=== PATIENT | female | born 1945 | race Caucasian/White ===

== ENCOUNTER 2018-07-06 09:27 | Emergency (ER) | payer MEDICARE ==
[~2018-07-06] VITALS: Ht 165.1 cm; Wt 61.2 kg
--- OUTSIDE RECORDS SUMMARY | 2018-07-06 09:29 | XMS REPORT | Summary of Care ---
Author Author [facility] [place] Organization [facility] [place] Address Unknown Phone Unavailable Encounter HQ Encntr_madeline(FIN) [id number] Date(s): 07/04/16 - 07/04/16 [facility] [place] [address] [place] [address] [phone] Discharge Disposition: Home or Self Care Attending Physician: Rojas Urias MD Vital Signs No data available for this section Problem List No data available for this section Allergies, Adverse Reactions, Alerts Substance Reaction Severity Status tetracyclines Active Medications No data available for this section Results No data available for this section Immunizations Given and Recorded Vaccine Date Status Refusal Reason tetanus-diphtheria toxoids 09/14/11 Given Procedures No data available for this section Social History No data available for this section Assessment and Plan No data available for this section
--- OUTSIDE RECORDS SUMMARY | 2018-07-06 09:29 | XMS REPORT | CCD ---
Author Author Auto Generated Organization [facility] Address Unknown Phone Unavailable Care Team Providers Care Director Peoples[employer] Name Role Phone Parag Ashley CP Allergies, Adverse Reactions, Alerts Substance Reaction Status tetracyclines Active Medications Medication Instructions Start Date End Date Status Vicodin 5/500 oral 1 tab, PO, Q4H, PRN, 14 tab, for 09/14/2011 Ordered tablet pain, Substitution Allowed, Maintenance, TAB Augmentin 400 mg/5 5 ml, PO, Q12H, 100 mL, 09/14/2011 09/24/2011 Ordered mL oral liquid Substitution Allowed, Maintenance, PDR/REC tetanus-diphtheria 0.5 ml, Route: IM, Drug Form: INJ, 09/14/2011 09/14/2011 Completed toxoids adult ONCE, STAT, Start date: 09/14/11 intramuscular 23:38:00, Stop date: 09/14/11 suspension 23:38:00 Immunizations Vaccine Date Status tetanus-diphtheria toxoids 09/14/2011 Auth (Verified) Vital Signs Most recent to oldest [Reference Range]: 1 2 Height 165.10 cm (09/14/2011 20:42:00) Temperature Oral [96.4-99.1 DegF] 98.4 DegF (09/14/2011 23:52:00) Systolic Blood Pressure [90-140 mmHg] 172 mmHg *HI* (09/14/2011 23:52:00) 140 mmHg (09/14/2011 20:42:00) Diastolic Blood Pressure [60-90 mmHg] 65 mmHg (09/14/2011 23:52:00) 57 mmHg *LOW* (09/14/2011 20:42:00) Respiratory Rate [14-20 BRMIN] 20 BRMIN (09/14/2011 23:52:00) 18 BRMIN (09/14/2011 20:42:00) Peripheral Pulse Rate [60-100 bpm] 74 bpm (09/14/2011 23:52:00) 89 bpm (09/14/2011 20:42:00) Weight 67.273 kg (09/14/2011 20:42:00)
--- OUTSIDE RECORDS SUMMARY | 2018-07-06 09:29 | XMS REPORT | Continuity of Care Document ---
Author Author Francisco pineda [facility] Interface Address Unknown Phone Unavailable Problems Problem Status Onset Date Classification Date Reported Comments Source M81.0 - AGE-RELATED OSTEOPOROSIS W/O C Active 06/28/2016 MARCELO Francis FALL Active 09/14/2011 [facility] Medications Medication Details Route Status Patient Instructions Ordering Provider Order Date Source tetanus-diphtheria toxoids adult intramuscular suspension 0.5 ml, Route: IM, Drug Form: INJ, ONCE, STAT, Start date: 09/14/11 23:38:00, Stop date: 09/14/11 23:38:00LOT#: [id number]: (Td=tetanus toxoid-diphtheria toxoid 5-2 unit/0.5 ml adult tubex INJ) [place] [facility]500 oral tablet 1 tab, PO, Q4H, PRN, 14 tab, for pain, Substitution Allowed, Maintenance, TAB PO Active [facility] [place]/15/2011 [facility] Augmentin 400 mg/5 mL oral liquid 5 ml, PO, Q12H, 100 mL, Substitution Allowed, Maintenance, PDR/REC PO Active [facility] [place]/15/2011 [facility] Allergies, Adverse Reactions, Alerts Substance Category Reaction Severity Reaction type Status Date Reported Comments Source tetracyclines Assertion Drug allergy Active MARCELO Francis Immunizations Immunization Date Given Site Status Last Updated Comments Source tetanus-diphtheria toxoids 09/15/[address] [facility] 09/15/2011 Left deltoid completed [facility] MARCELO Francis Results Order Name Results Value Reference Range Date Interpretation Comments Source Bone Density DXA Dual Energy MA Bone Density DXA Dual Energy MA - Bone Density DXA Dual Energy MA BONE DENSITY EVALUATION: 07/04/2016 CLINICAL DATA: Post menopausal. RISK FACTORS: race. FINDINGS: Bone density evaluation was performed 07/04/2016 on the AP L1-L4 region of spine using a Hologic unit. The BMD average for the exam is 0.977 g/cm2. The T-score is -0.60 and the Z-score is 1.50. This matches the World Health Organization's criteria for normal bone density and places the patient within normal limits of fracture risk. An additional bone density evaluation was performed 07/04/2016 on the right femur neck using a Hologic unit. The BMD average for the exam is 0.808 g/cm2. The T-score is -1.10 and the Z-score is 0.50. This matches the World Health Organization's criteria for osteopenia and places the patient at a medium risk for fracture. An additional bone density evaluation was performed 07/04/2016 on the right hip using a Hologic unit. The BMD average for the exam is 0.815 g/cm2. The T-score is -1.00 and the Z-score is 0.50. This matches the World Health Organization's criteria for normal bone density and places the patient within normal limits of fracture risk. An additional bone density evaluation was performed 07/04/2016 on the left femur neck using a Hologic unit. The BMD average for the exam is 0.685 g/cm2. The T- score is -1.50 and the Z-score is 0.40. This matches the World Health Organization's criteria for osteopenia and places the patient at a medium risk for fracture. An additional bone density evaluation was performed 07/04/2016 on the left hip using a Hologic unit. The BMD average for the exam is 0.711 g/cm2. The T-score is -1.20 and the Z-score is 0.60. This matches the World Health Organization's criteria for osteopenia and places the patient at a medium risk for fracture. IMPRESSION: OSTEOPENIA Patient is at medium risk for fracture. Professional services are provided by the [facility]. This exam was dictated and interpreted by [id number] for MAGDALENA Mtz 15. Paawn Roper M.D., cm/liana:07/04/2016 11:47:04 Flight Line Service Attendant: Alanis FONSECA(Marv)(M), [facility] 07/04/2016 - - Read by: Lance Roper III, MD Dictated Date/time: 07/04/16 11:47 Electronically Signed by: Lance Roper III, MD 07/04/16 11:47 FINAL REPORT MARCELO Francis Bone Density-Dual Energy Absorptionmetry Bone Density-Dual Energy Absorptionmetry - Bone Density-Dual Energy Absorptionmetry BONE DENSITY EVALUATION: 07/31/2013 CLINICAL DATA: Post menopausal. COMPARISON: 07/29/2011 AP L1-L4 region of spine using Lunar Dual Energy X-Ray Absorptiometry from [facility] with reported normal fracture risk, BMD of 1.211g/cm2, T-score of 0.30, Z-score of 1.80 and 121.0% age-match bone mineralization. 07/29/2011 Right hip using Lunar Dual Energy X-Ray Absorptiometry from [facility] with reported normal fracture risk, BMD of 0.904g/cm2, T-score of -0.80, Z-score of 0.30 and 105.0% age-match bone mineralization. 07/29/2011 Left hip using Lunar Dual Energy X-Ray Absorptiometry from [facility] with reported normal fracture risk, BMD of 0.909g/cm2, T-score of -0.80, Z-score of 0.40 and 106.0% age-match bone mineralization. FINDINGS: Bone density evaluation was performed 07/31/2013 on the AP L1-L4 region of spine using Lunar Dual Energy X-Ray Absorptiometry. The BMD average for the exam is 1.222 g/cm2. The T-score is 0.40 and the Z-score is 2.00. These values indicate 124.0% for age-matched controls. Since the previous similar exam of 07/29/2011, there has been a +0.011 or +0.9% change in the BMD value which represents no significant interval change in bone density. This matches the World Health Organization's criteria for normal bone density and places the patient within normal limits of fracture risk. An additional bone density evaluation was performed 07/31/2013 on the right femur neck using Lunar Dual Energy X-Ray Absorptiometry. The BMD average for the exam is 0.931 g/cm2. The T-score is -0.80 and the Z-score is 0.80. These values indicate 114.0% for age-matched controls. This matches the World Health Organization's criteria for normal bone density and places the patient within normal limits of fracture risk. An additional bone density evaluation was performed 07/31/2013 on the right hip using Lunar Dual Energy X-Ray Absorptiometry. The BMD average for the exam is 0.858 g/cm2. The T-score is -1.20 and the Z-score is 0.10. These values indicate 102.0% for age-matched controls. Since the previous similar exam of 07/29/2011, there has been a -0.046 or -5.1% change in the BMD value which represents no significant interval change in bone density. This matches the World Health Organization's criteria for osteopenia and places the patient at a medium risk for fracture. An additional bone density evaluation was performed 07/31/2013 on the left femur neck using Lunar Dual Energy X-Ray Absorptiometry. The BMD average for the exam is 0.942 g/cm2. The T-score is -0.70 and the Z-score is 0.90. These values indicate 115.0% for age-matched controls. This matches the World Health Organization's criteria for normal bone density and places the patient within normal limits of fracture risk. An additional bone density evaluation was performed 07/31/2013 on the left hip using Lunar Dual Energy X-Ray Absorptiometry. The BMD average for the exam is 0.871 g/cm2. The T-score is -1.10 and the Z-score is 0.20. These values indicate 104.0% for age-matched controls. Since the previous similar exam of 07/29/2011, there has been a -0.038 or -4.2% change in the BMD value which represents no significant interval change in bone density. This matches the World Health Organization's criteria for osteopenia and places the patient at a medium risk for fracture. IMPRESSION: OSTEOPENIA Patient is at medium risk for fracture. Dr. Hawk richmond/liana:07/31/2013 15:26:31 Flight Line Service Attendant: Camilo Acosta [facility] 07/31/2013 - - Read by: Hawk Ray Dictated Date/time: 07/31/13 15:26 Electronically Signed by: Hawk Ray MD 07/31/13 15:26 FINAL REPORT MARCELO Francis Vital Signs Vital Sign Value Date Comments Source Respitory Rate 20 09/15/2011 [facility] Heart Rate 74 09/15/2011 [facility] Temperature Oral (F) 98.4 F 09/15/2011 [facility] Diastolic (mm Hg) 65 09/15/2011 [facility] Systolic (mm Hg) 172 09/15/2011 [facility] Height 165.10 cm 09/15/2011 [facility] Weight 67.273 09/15/2011 [facility] Respitory Rate 18 09/15/2011 [facility] Heart Rate 89 09/15/2011 [facility] Systolic (mm Hg) 140 09/15/2011 [facility] Diastolic (mm Hg) 57 09/15/2011 [facility] Encounters Location Location Details Encounter Type Encounter Number Reason For Visit Attending Provider ADM Date DC Date Status Source [facility] Emergency [id number] [facility] 09/14/2011 09/15/2011 Active [facility] [place] [facility] [id number] Rojas Urias 07/04/2016 07/05/2016 MARCELO Francis Procedures Procedure Code Date Perfomer Comments Source
[2018-07-06 10:59] LABS: ANION GAP 20.3 mmol/L (8-16); CALCIUM 10.8 mg/dL (8.4-10.2); CREATININE, SERUM 1.19 mg/dL (0.57-1.11); POTASSIUM 4.3 mmol/L (3.5-5.1)
[2018-07-06 11:42] VITALS: BP 121/67
== END 2018-07-06 11:54 | disposition home or self-care (01) ==
LOC: ER 09:27
DX: Z03.89 Encounter for observation for other suspected diseases and conditions ruled out (principal)
CPT/HCPCS: 36415; 80048; 93005; 99283

== ENCOUNTER → 2018-10-03 | Outpatient (CLI) | payer MEDICARE ==
[~2018-10-03] MED LIST: IOPAMIDOL 370 MG/ML 200 ML INFUS..BTL INJ ONE; SODIUM CHLORIDE 0.9% 100 ML 100 ML ONE
[2018-10-03 17:46] LABS: ANION GAP 17.6 mmol/L (8-16); BLOOD UREA NITROGEN 14 mg/dL (7-26); BUN/CREATININE RATIO 17 (6-25); CALCIUM 9.8 mg/dL (8.4-10.2); CARBON DIOXIDE 23 mmol/L (22-29); CHLORIDE 105 mmol/L (98-107); CREATININE, SERUM 0.81 mg/dL (0.57-1.11); EST GLOMERULAR FILTRATION RATE > 60 ML/MIN (60-); GLUCOSE 106 mg/dL (74-118); POTASSIUM 3.6 mmol/L (3.5-5.1); SODIUM 142 mmol/L (136-145)
--- NOTE | 2018-10-03 18:51 | Diagnostic Imaging Report ---
EXAMINATION: CTA of the abdomen with contrast. TECHNIQUE: Spiral CT images of the abdomen were performed from the lung bases to the iliac crests after the intravenous administration of 100 cc of Isovue 370 and the oral administration of Redicat. Coronal and sagittal reformatted images were obtained. COMPARISON: None. CLINICAL HISTORY:AAA, size for stent placement DISCUSSION: LOWER THORAX:Unremarkable. HEPATOBILIARY: Normal hepatic size and contour. No focal hepatic lesions. No intra or extrahepatic biliary ductal dilation. GALLBLADDER: 4 mm radiopaque stone in the gallbladder lumen. No wall thickening. SPLEEN: No splenomegaly. PANCREAS: No focal masses or ductal dilatation. Ill-defined 9 mm hypodense lesion in the spleen ADRENALS: 1.6 x 1.6 cm hypodense nodular lesion in the left adrenal gland (series 3, image 33). The right adrenal gland is unremarkable. KIDNEYS/URETERS: No hydronephrosis, stones, or solid mass lesions. PERITONEUM/RETROPERITONEUM: No free air or fluid. LYMPH NODES: No intra-abdominal or retroperitoneal lymphadenopathy. VESSELS: Aorta and proximal branches: Ectasia of the infrarenal abdominal aorta, with maximal measurement of 2.2 x 2.0 cm (series 3, image 59) and extending approximately 3.0 cm craniocaudally. Greater than 90% luminal reduction at this level due to atherosclerotic soft and calcified plaque. Approximately 60% luminal reduction more superiorly (series 3, image 52) secondary to almost circumferential soft atherosclerotic plaque. Marked atherosclerotic calcification of the most distal portion of the abdominal aorta (for example series 3, image 71). Mild to moderate atherosclerotic calcification of the vessels. Mild calcified plaque is also noted at the origin of the celiac trunk and bilateral renal arteries, without significant luminal reduction. The celiac trunk, SMA, and TRACY are patent. Single renal arteries are present bilaterally both of which are patent. The iliac vessels are patent. Measurements of the aorta obtained orthogonal to the longitudinal axis on reconstruction views are as follows: 1.9 cm at the level of the diaphragmatic hiatus, 1.8 cm at the level of the celiac trunk, 1.7 cm at the level of the SMA, 1.3 cm at level of the renal arteries, and 1.1 cm just above the level of the bifurcation. GI TRACT: No bowel dilation or evidence of obstruction. No pericolonic inflammatory changes. Descending colon diverticulosis. BONES AND SOFT TISSUE: No aggressive lytic lesions. Soft tissues are unremarkable. IMPRESSION: 1. Ectasia of the infrarenal abdominal aorta with maximal measurement of 2.2 x 2.0 cm and craniocaudal extension of approximately 3.0 cm. There is greater than 90% luminal reduction at this level due to atherosclerotic soft and calcified plaque. No contrast extravasation or periaortic hematoma. 2. Atherosclerotic disease worse in the distal aorta above the bifurcation. 3. Indeterminate 1.6 cm hypodense nodule in the left adrenal gland, which may represent an adenoma. This may be further assessed with CT abdomen adrenal mass protocol, on a nonemergent basis. 4. Cholelithiasis, without CT evidence of cholecystitis. Signed by: Dr. Db Ulloa M.D. on 10/03/2018 6:48 PM
== END ==
LOC: CT 16:53
PROVIDERS: ATTEND Internal Medicine Interventional Cardiology
DX: I71.4 Abdominal aortic aneurysm, without rupture (principal); K80.20 Calculus of gallbladder without cholecystitis without obstruction
CPT/HCPCS: 36415; 74175; 80048; Q9967

== ENCOUNTER 2021-06-21 14:09 | Emergency (ER) | payer MEDICARE ==
[~2021-06-21] VITALS: Ht 165.1 cm; Wt 61.2 kg
[2021-06-21] MEDS ORDERED: CASIRIVIMAB/IMDEVIMAB 10 ML in SODIUM CHLORIDE 0.9% 100 ML IV ONE (14:30)
== END 2021-06-21 15:50 | disposition home or self-care (01) ==
LOC: ER 14:22
DX: U07.1 COVID-19 (principal); R05.9 Cough, unspecified; I10 Essential (primary) hypertension; E11.9 Type 2 diabetes mellitus without complications; E03.9 Hypothyroidism, unspecified; Z85.51 Personal history of malignant neoplasm of bladder
CPT/HCPCS: 99283; J7050